=== PATIENT | male | born 1940 | race Caucasian/White ===

== ENCOUNTER 2023-04-16 09:44 | Outpatient (CLI) | payer MEDICARE, SELFPAY | END 2023-04-16 09:45 | disposition home or self-care (01) | LOC: ANHAUDIO 09:47 | PROVIDERS: PCP Nurse Practitioner Family; Visit Provider Nurse Practitioner Family | DX: R26.89 Other abnormalities of gait and mobility (principal); H91.90 Unspecified hearing loss, unspecified ear | CPT/HCPCS: 99199 ==

== ENCOUNTER 2024-01-22 11:15 | Outpatient (RCR) | payer MEDICARE, SELFPAY ==
--- NOTE | 2023-12-25 16:38 | OPREHPOC ---
Outpatient Therapy Plan of Care This is a Multidisciplinary Plan of Care that may contain components documented by all disciplines (PT, OT, and ST.) PT Problem 1 PT Problem #1 Knowledge Deficit PT Goal 1 Goal *indep with HEP Target Visit 10 PT Problem 2 PT Problem #2 Impaired Strength PT Goal 1 Goal increase strength of R and L LE to improve mobility and safety 1* pt perform 20 reps of mat and standing exercises 2* single leg standing R x 10 seconds with good stability 3* single leg standing L x 10 seconds with good stability Target Visit 10 PT Problem 3 PT Problem #3 Impaired Functional Mobility PT Goal 1 Goal 1* Kuhn balance score of 53/56 2* 5 sit/stand time of 16 seconds with good stability 3* 2 minute walking test distance of 425' 4* further assessment of vestibular system as indicated Target Visit 10
--- NOTE | 2023-12-25 16:38 | PTOPEVAL1 ---
Assessment and note entered by Consuelo Wong, PT Evaluation Information Assessment Status Evaluation Diagnosis dizziness ICD-10 Condition Codes (PT) Dizziness & Giddiness R42 Onset Jun 2023 Subjective Information issues for about 2 years with dizziness, worst in the past 6 months; take meclazine 4x/day, take regularly/ not PRN; not sure if it helps or not; symptoms: off balance with sit to stand: stand still before take off walking; depth perception is not good; cannot walk straight path and have shorter steps; with leaning over to pick things up off floor- move slowly because get off balance; spinning ONLY occurs at night, when lie in bed, rolling in bed, ceiling spins around; if lie on L side it eases; in the past 6 months: fell 1 time with sitting down- did not back up enough to the chair; activity level: indep with home and light yard work; does weekly motorcycle trip with group; has a membership to [employer], but go only about 1x/wk; Reported Pain Level Pain Score 2: Self Report Additional Pain Score Comments chronic back and R hip pain Assessment PT Clinical Summary Hugh has the diagnosis of dizziness. His medical history includes: HTN, diabetes, increase cholesterol, falls, sinus issues, [place]. With the evaluation: he reports his symptoms more of unbalanced, unsteady and fear of falling, moving slowly and only spinning reported with lie in bed and rolling, eases quickly with holding still. He has decreased strength of both legs, R weaker than L; Kuhn balance score of 47/56, 2 minute walking test distance of 365' and 5 reps sit/stand time of 19 seconds. Skilled PT services are indicated for increase in LE strength, balance and mobility skill, with education for HEP and safety with mobility. Will monitor dizziness/spin
== END 2024-03-16 10:00 | disposition home or self-care (01) ==
LOC: ANHPT 11:15
PROVIDERS: PCP Nurse Practitioner Family; Visit Provider Nurse Practitioner Family
DX: R42 Dizziness and giddiness (principal)
CPT/HCPCS: 97110; 97112; 97116; 97162; 97530

== ENCOUNTER 2024-06-03 09:57 | Outpatient (CLI) | payer MEDICARE, SELFPAY ==
--- NOTE | ~2024-06-03 | XR_ITS ---
Thoracic spine: Clinical Indication: Back pain AP and lateral views were performed. No fracture is seen. There is normal alignment of the vertebrae. There is mild to moderate degenerat lorena disc narrowing throughout the thoracic spine. Paravertebral soft tissues appear normal. Impression: Mild to moderate degenerative disc narrowing throughout the thoracic spine. Reviewed, dictated and finalized at [facility]. N RESOURCES RECEPTIONIST Impression: Mild to moderate degenerative disc narrowing throughout the thoracic spine.
--- NOTE | ~2024-06-03 | XR_ITS ---
Lumbosacral Spine: AP and lateral views Clinical History: Pain Findings: The normal lordotic curve is maintained. No fracture seen. Grade I anterolisthesis of L4 ov er L5 noted. There are severe facet arthropathy at L4-L5 and L5-S1. There is moderate degenerative di sc narrowing at L1-L2 and L2-L3. The sacroiliac joints are normally outlined. Impression: Moderate degenerative spondylosis overall, as detailed above. Grade 1 anterolisthesis of L4 over L5. Reviewed, dictated and finalized at location M. L BUILDER Impression: Moderate degenerative spondylosis overall, as detailed above. Grade 1 anterolisthesis of L4 over L5.
== END 2024-06-03 09:58 | disposition home or self-care (01) ==
LOC: MICIMG 09:59
PROVIDERS: PCP Nurse Practitioner Family; Visit Provider Nurse Practitioner Family
DX: M51.369 Other intervertebral disc degeneration, lumbar region without mention of lumbar back pain or lower extremity pain (principal); M51.34 Other intervertebral disc degeneration, thoracic region
CPT/HCPCS: 72070; 72100

== ENCOUNTER 2024-12-21 14:08 | Inpatient (IN) | payer MEDICARE, SELFPAY ==
--- NOTE | ~2024-12-21 | CT_ITS ---
CT OF left foot with contrast EXAMINATION: CT foot LT w con DATE: 12/21/2024 18:15 INDICATION: Infection, lateral foot TECHNIQUE: Computed tomography (CT) of the left foot was performed with 100 MLO Omnipaque 350 intrave nous contrast. Automated exposure control and iterative reconstruction technique were employed. The d ose-length product was 497.38 mGy-cm. COMPARISON: X-ray left foot, same date FINDINGS: Limitations: None Bones: Moderate degenerative change at the first MTP joint. Mild scattered degenerative change in the midfoot joints. Mild degenerative change at the ankle. 12 mm ossified body anterior to the distal fi bula, ossicle versus old fracture fragment. Mild Achilles and plantar enthesopathy. The included osse ous structures are otherwise within normal limits. There are no erosive or destructive bony lesions. Soft Tissues:Induration of subcutaneous fat laterally. No focal skin defect. Likely partial tear of t he peroneus brevis tendon. The remaining flexor and extensor tendons appear to be intact. Fluid: No significant fluid within the joint capsule or surrounding soft tissues. IMPRESSION: No acute osseous finding in the left foot. No CT evidence of osteomyelitis. Likely partial peroneus brevis tear. Lateral soft tissue swelling/induration. Reviewed, dictated and finalized at location K.
--- NOTE | ~2024-12-21 | XR_ITS ---
EXAMINATION: XR foot LT min 3V DATE: 12/21/2024 15:50 INDICATION: Diabetic foot wound TECHNIQUE: Dorsoplantar, two oblique and lateral views of the left foot were obtained. COMPARISON: None. FINDINGS: Soft tissue swelling about the lateral aspect of the ankle and hindfoot. There is an indistinct corti kash margin along the distal tip at the lateral malleolus and could not exclude a cortical erosion/ost eolysis and loosening of osteomyelitis. There appears be a small ossific density anterior to the tip the lateral malleolus which appears corticated and favor chronic nonunited fracture fragment versus h eterotopic opacification related to chronic anterior talofibular ligament sprain. No other lesions chairez spicious for fracture. Hallux valgus and bunion with mild hypertrophic change at the medial head of t he first metatarsal. Chronic appearing erosion with overhanging subsequent thin sclerotic margins at the medial head of the first metatarsal which could be related to the bunion formation with different ial also including gout. Moderate osteoarthritis at the and first and second metatarsophalangeal join ts and at the third tarsal metatarsal joint. Additional mild polyarticular osteoarthritis involving m any of the remaining joints in the left foot. Small plantar calcaneal spur. IMPRESSION: 1. Soft tissue swelling at the lateral ankle and hindfoot with indistinct cortex at the tip of the la teral malleolus and could not exclude osteomyelitis. Differential would include sequela from avulsion fracture either acute or chronic. Correlate for adjacent skin wound and consider left ankle radiogra phs to better profiled as location. 2. Hallux valgus with bunion and possible chronic erosion at the medial head of the first metatarsal with appearance and location most suggestive of gout. 2. 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 Reviewed, dictated and finalized at location A. IMPRESSION: 1. Soft tissue swelling at the lateral ankle and hindfoot with indistinct trina x at the tip of the lateral malleolus and could not exclude osteomyelitis. Diff erential would include sequela from avulsion fracture either acute or chronic. Correlate for adjacent skin wound and consider left ankle radiographs to better profiled as location. 2. Hallux valgus with bunion and possible chronic erosion at the medial head of the first metatarsal with appearance and location most suggestive of gout. 2. 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
--- NOTE | ~2024-12-21 | MR_ITS ---
EXAMINATION: MR foot LT wo/w con DATE: 12/23/2024 12:42 INDICATION: Left foot ulcer. Assess for osteomyelitis. TECHNIQUE: Magnetic resonance imaging (MRI) of the left fore/mid foot was performed without and with 15 mL Multihance intravenous contrast. Sequences included axial, sagittal and coronal T1-weighted FSE , sagittal fluid sensitive FSE STIR, axial and coronal T2-weighted FS FSE, axial T1-weighted FS FSE a nd postcontrast axial, sagittal and coronal T1-weighted FS FSE. COMPARISON: CT dated 12/21/2024 FINDINGS: There is skin thickening and subcutaneous edema over the lateral aspect of the dorsum of the forefoot consistent with cellulitis. No abscess. No osteomyelitis or other pathologic marrow replacing proces s. No fracture. Hallux valgus with bunion formation at the medial head of the first metatarsal includ ing mild subcortical cystic changes. Mild to moderate polyarticular osteoarthritis, most severe and w ith associated subarticular cystlike and edema-like signal changes at the second-fourth tarsal metata rsal an intermetatarsal joints and at the first and second metatarsophalangeal joints. Mild osteoarth ritis at many of the remaining joints in the mid and forefoot. Ganglion cyst versus small amount of t enosynovial fluid stenting along the flexor hallucis longus longus tendon at the level of the midfoot . There is moderate fatty atrophy and diffuse mild increased fluid signal in the intrinsic musculatur e of the foot suggesting sequela of acute on chronic innervation changes. IMPRESSION: 1. Likely cellulitis at the lateral dorsal aspect of the forefoot. No osteomyelitis or abscess. 2. Moderate polyarticular osteoarthritis in the mid and forefoot. Reviewed, dictated and finalized at location A. IMPRESSION: 1. Likely cellulitis at the lateral dorsal aspect of the forefoot. No osteomyel itis or abscess. 2. Moderate polyarticular osteoarthritis in the mid and forefoot.
[2024-12-21 14:46] VITALS: BP 161/68; PULSE 90; RESP 16; TEMP 36.9; O2SAT 96
--- NOTE | 2024-12-21 14:53 | ED_ITS ---
HPI - Skin/Abscess/Foreign Bdy General Chief complaint: Skin/Abscess/Foreign Body <DANDRE Gray Last Filed: 12/22/24 10:40> Stated complaint: I have an infected L foot, it's red and swollen <DANDRE Gray Last Filed: 12/22/24 10:40> Time Seen by Provider: 12/21/24 14:53 <DANDRE Gray Last Filed: 12/22/24 10:40> Focused HPI: This is a 84 year old male that presents to the ER for redness, swelling, drainage from the left foot. Worsening over the last couple of days. He is diabetic. GENERAL: Well-appearing, well-nourished, and in no acute distress. HEAD: Normocephalic, atraumatic. CHEST: Clear to auscultation. ?No respiratory distress. HEART: Regular rate and rhythm.? NEURO: ?Alert and oriented x3. EXTREMITY: Left foot with large area of erythema with central fluctuance, actively draining pus Patient screened in triage and initial orders placed.? ?Additional care and disposition to be based upon?diagnostic testing and treatment. <Chela Christiansen PA-C - Last Filed: 12/22/24 10:40> Focused HPI: This is a 84 year old male that presents to the ER for redness, swelling, drainage from the left foot. Worsening over the last couple of days. He is diabetic. GENERAL: Well-appearing, well-nourished, and in no acute distress. HEAD: Normocephalic, atraumatic. CHEST: Clear to auscultation. ?No respiratory distress. HEART: Regular rate and rhythm.? NEURO: ?Alert and oriented x3. EXTREMITY: Left foot with large area of erythema with central fluctuance, actively draining pus Patient screened in triage and initial orders placed.? ?Additional care and disposition to be based upon?diagnostic testing and treatment. <DANDRE Cruz Last Filed: 12/21/24 20:38> Source: patient <DANDRE Cruz Last Filed: 12/21/24 20:38> Mode of arrival: ambulatory <DANDRE Cruz Last Filed: 12/21/24 20:38> Limitations: no limitations <Sadia Jones PA-C - Last Filed: 12/21/24 20:38> History of Present Illness HPI narrative: Agree with above HPI. Reports last Saturday he noticed a piece of glass in his shoe. Sustained small laceration to his left lateral mid foot. Reports that has increased in size, swelling, redness, pain. States his blood sugars have been around 120. He reports subjective fevers over last couple days. < DANDRE Cruz Last Filed: 12/21/24 20:38> Related Data Home medications: Home Medications ?Medication ?Instructions ?Recorded ?Confirmed ?Last Taken ?Type calcium carbonate (Calcium 500) 500 mg PO BID PRN dyspepsia 08/05/19 12/21/24 Unknown History psyllium husk 3.4 gram/5.4 gram 1 tbsp PO DAILY 08/05/19 12/21/24 Unknown History oral powder (Metamucil) clopidogrel 75 mg tablet 75 mg PO HS 12/21/24 12/21/24 Unknown History finasteride 5 mg tablet 5 mg PO DAILY 12/21/24 12/21/24 Unknown History pravastatin 20 mg tablet 20 mg PO HS 12/21/24 12/21/24 Unknown History <Chela Christiansen PA-C - Last Filed: 12/22/24 10:40> Allergies/Adverse reactions: Allergies Allergy/AdvReac Type Severity Reaction Status Date / Time No Known Allergies Allergy Verified 12/21/24 21:42 <DANDRE Gray Last Filed: 12/22/24 10:40> Review of Systems 2 Review of Systems: All systems reviewed & are unremarkable except as noted in HPI. <Sadia Jones PA-C - Last Filed: 12/21/24 20:38> All systems reviewed & are unremarkable except as noted in HPI and below < Sadia Jones PA-C - Last Filed: 12/21/24 20:38> PMFSH Past Medical History Medical History: Medical History (Updated 12/21/24 @ 22:50 by Lynsey Lovell DO) GERD (gastroesophageal reflux disease) Allergic rhinitis Chronic kidney disease (CKD) stage G2/A2, mildly decreased glomerular filtration rate (GFR) between 60-89 mL/min/1.73 square meter and albuminuria creatinine ratio between 30-299 mg/g ASHD (arteriosclerotic heart disease) Benign essential hypertension Cerebrovascular accident (CVA) Chronic GERD Elevated prostate specific antigen [PSA] Nocturnal leg cramps Nummular eczema Other and unspecified hyperlipidemia <Chela Christiansen PA-C - Last Filed: 12/22/24 10:40> Surgical History Surgical History: Surgical History (Updated 12/21/24 @ 22:43 by Lynsey Lovell DO) History of arthroscopy of left knee (~2015) History of tonsillectomy and adenoidectomy (~1946) <Chela Christiansen PA-C - Last Filed: 12/22/24 10:40> Family History Family History: Family History Father Family history of lung cancer <Chela Christiansen PA-C - Last Filed: 12/22/24 10:40> Social History Social History: Social History (Updated 12/21/24 @ 22:45 by Lynsey Lovell DO) Social History: Patient lives with his they been since 1964. They have 2 daughters and a son. Two of her children live in [place]. He smoked 1 pack per day but quit in his early 20s. 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 He only briefly drink alcohol when he was young he only will rarely drink a small amount since then. He is active does his own [employer] work and is independent in activities of daily living. Code status: Full code Surrogate decision maker: Smoking packs per day: 1 Smoking cigarettes per day: 20.0 Years smoked: 4 Smoking pack-years: 4.00 Smoking status: Former smoker Second hand tobacco smoke exposure: No Smoking end date: 06/17/1966 Alcohol intake: current Drinks per week: 1 Alcohol use details: Rarely Substance use: never Substance use type: does not use Do You Feel Safe in your Home?: Yes Lack of Transportation: No Lack of Food: Never True Current Housing: I Have Housing Concerned About Future Housing: No Difficulty Paying Gas/Electric Bills: No Difficulty Paying for Meds: No Currently Unemployed: No Education: Bachelor's Degree Difficulty w/ Childcare or Family Care: No Living arrangements: with family Occupation/Education: retired Gender identity (if verbalized by the patient): Male Sexual Orientation (if Verbalized by the Patient): Straight or Heterosexual Spiritual care concerns: No <Chela Christiansen PA-C - Last Filed: 12/22/24 10:40> Exam 2 Narrative: GENERAL: Elderly/well appearing, well-nourished, non-toxic, in no acute distress. HEAD: Normocephalic, atraumatic. RESPIRATORY: Airway patent, respirations nonlabored. CARDIOVASCULAR: Regular rate and rhythm without murmurs, rubs, or gallops. Pedal pulses intact and easily palpable. MUSCULOSKELETAL: Moves all extremities. Area of bogginess, fluctuance to L mid lateral dorsal foot/in area of mid 5th MT. Active purulent drainage with gentle manipulation. Surrounding erythema/warmth extending up to dorsal foot, lateral malleoli region. Focal TTP. Sensation intact. SKIN: Warm, dry, normal color. NEURO: A&O X3. Speech clear. [place]. No ataxic movements. PSYCHIATRIC: Appropriate mood and affect. Normal interaction. <Sadia Jones PA-C - Last Filed: 12/21/24 20:38> Course STREET PHOTOGRAPHER/PA Physician Supervision For this patient encounter, I reviewed the STREET PHOTOGRAPHER or PA documentation, treatment plan, and medical decision making and had [id number] time with this patient. I performed all aspects of the MDM as documented. <Apurva Holbrook MD - Last Filed: 12/22/24 03:15> Vital Signs Vital signs: Vital Signs Temperature 98.4 F 12/21/24 14:46 Pulse Rate 90 12/21/24 14:46 Respiratory Rate 16 12/21/24 14:46 Blood Pressure 161/68 H 12/21/24 14:46 Pulse Oximetry 96 12/21/24 14:46 Oxygen Delivery Room Air 12/21/24 14:46 Temperature 97.6 F 12/22/24 04:14 Pulse Rate 72 12/22/24 04:14 Respiratory Rate 18 12/22/24 04:14 Blood Pressure 149/66 H 12/22/24 04:14 Pulse Oximetry 93 12/22/24 04:14 Oxygen Delivery Room Air 12/22/24 08:00 <Chela Christiansen PA-C - Last Filed: 12/22/24 10:40> Vital Signs Temperature 98.4 F 12/21/24 14:46 Pulse Rate 90 12/21/24 14:46 Respiratory Rate 16 12/21/24 14:46 Blood Pressure 161/68 H 12/21/24 14:46 Pulse Oximetry 96 12/21/24 14:46 Oxygen Delivery Room Air 12/21/24 14:46 Temperature 97.6 F 12/22/24 04:14 Pulse Rate 72 12/22/24 04:14 Respiratory Rate 18 12/22/24 04:14 Blood Pressure 149/66 H 12/22/24 04:14 Pulse Oximetry 93 12/22/24 04:14 Oxygen Delivery Room Air 12/22/24 08:00 <Sadia Jones PA-C - Last Filed: 12/21/24 20:38> Vital Signs Temperature 98.4 F 12/21/24 14:46 Pulse Rate 90 12/21/24 14:46 Respiratory Rate 16 12/21/24 14:46 Blood Pressure 161/68 H 12/21/24 14:46 Pulse Oximetry 96 12/21/24 14:46 Oxygen Delivery Room Air 12/21/24 14:46 Temperature 97.6 F 12/22/24 04:14 Pulse Rate 72 12/22/24 04:14 Respiratory Rate 18 12/22/24 04:14 Blood Pressure 149/66 H 12/22/24 04:14 Pulse Oximetry 93 12/22/24 04:14 Oxygen Delivery Room Air 12/22/24 08:00 <Apurva Holbrook MD - Last Filed: 12/22/24 03:15> MDM - Skin/Abscess/Foreign Bdy MDM Narrative Medical decision making narrative: Patient presented to ED with diabetic L foot infection. Believes he was cut by a piece of glass in his shoe on Saturday. Vital signs are stable upon arrival. Afebrile. Laboratory studies with white count of 10.4. Neutrophil predominance. Stable H&H. Inflammatory markers are elevated. Lactic acid within normal range. BMP is otherwise fairly unremarkable. Blood glucose is 152. Blood cultures were obtained. Wound culture was also obtained from actively draining region on foot. X-ray of left foot showing soft tissue swelling, possible osteomyelitis near the tip of the lateral malleoli. Will obtain CT of the foot to further evaluate. CT does not show any evidence of osteomyelitis or foreign body. No evidence of abscess. Patient started on cefepime, vancomycin, Flagyl for diabetic foot infection per ED antibiotic stewardship. Will be admitted for further evaluation of foot infection. Discussed case with Dr. Lovell, hospitalist, accepted patient for admission. Wound consult placed. Patient and family in agreement with plan and admission. <Sadia Jones PA-C - Last Filed: 12/21/24 20:38> Medical Records Attestation: I reviewed the patient's medical records. <DANDRE Cruz Last Filed: 12/21/24 20:38> Lab Data Attestation: I reviewed the patient's lab results. <DANDRE Cruz Last Filed: 12/21/24 20:38> Result diagrams: 12/22/24 05:28 12/22/24 05:28 <DANDRE Gray Last Filed: 12/22/24 10:40> Labs: Lab Results 12/21/24 12/21/24 12/22/24 Range/Units 16:39 21:37 05:28 WBC 10.4 H 7.8 (4.5-10.0) K/mm3 RBC 4.44 L 4.30 L (4.6-6.20) M/mm3 Hgb 13.5 L 13.2 L (14.0-18.0) g/dL Hct 39.9 L 38.8 L (42.0-52.0) % MCV 89.9 90.2 (80-100) fl MCH 30.4 30.7 (26-34) pg MCHC 33.8 34.0 (32-36) g/dl RDW 12.7 12.8 (11.5-14.5) % Plt Count 142 L 136 L (150-375) k/mm3 MPV 11.0 H 11.0 H (7.4-10.4) fl Immature Gran % (Auto) 0.5 0.5 (0-0.5) % Neut % (Auto) 78.7 H 74.1 H (45.5-73.1) % Lymph % (Auto) 12.7 L 13.8 L (18.3-44.2) % [place] % (Auto) 6.3 7.8 (2.6-8.5) % Eos % (Auto) 1.5 3.2 (0-4.4) % Baso % (Auto) 0.3 0.6 (0.2-1.2) % Lymph # (Auto) 1.32 1.08 (0.9-3.2) K/mm3 [place] # (Auto) 0.7 H 0.6 (0.1-0.6) K/mm3 Eos # (Auto) 0.2 0.3 (0-0.3) K/mm3 Baso # (Auto) 0.0 0.1 (0.0-0.1) K/mm3 Abs Immat Gran (auto) 0.05 H 0.04 H (0.00-0.031) K/mm3 Absolute Neuts (auto) 8.2 H 5.8 (1.3-6.7) K/mm3 Absolute Nucleated RBC 0.000 0.000 (0.0-0.012) K/mm3 Nucleated RBC % 0.0 0.0 (0.0-0.2) % % Immature Plt Fraction 5.0 5.2 (0.9-11.2) % ESR 51 H (0-20) mm/hr Sodium 138 (137-145) mmol/L Potassium 4.1 (3.4-5.0) mmol/L Chloride 101 (98-107) mmol/L Carbon Dioxide 30 (22-30) mmol/L Anion Gap 7 (4-12) mmol/L BUN 20 (9-20) mg/dL Creatinine 0.91 0.82 (0.7-1.3) mg/dL Estim Creat Clear Calc 54 60 ml/min Estimated GFR > 60 > 60 (59 - ) Glucose 152 H (65-110) mg/dL POC Capillary Glucose 130 H (65-105) mg/dl Lactic Acid 1.1 (0.7-2.0) mmol/L Calcium 9.9 (8.4-10.2) mg/dL C-Reactive Protein 3.4 H (<1.0) mg/dL 07/08/25 Range/Units 08:26 WBC (4.5-10.0) K/mm3 RBC (4.6-6.20) M/mm3 Hgb (14.0-18.0) g/dL Hct (42.0-52.0) % MCV (80-100) fl MCH (26-34) pg MCHC (32-36) g/dl RDW (11.5-14.5) % Plt Count (150-375) k/mm3 MPV (7.4-10.4) fl Immature Gran % (Auto) (0-0.5) % Neut % (Auto) (45.5-73.1) % Lymph % (Auto) (18.3-44.2) % [place] % (Auto) (2.6-8.5) % Eos % (Auto) (0-4.4) % Baso % (Auto) (0.2-1.2) % Lymph # (Auto) (0.9-3.2) K/mm3 [place] # (Auto) (0.1-0.6) K/mm3 Eos # (Auto) (0-0.3) K/mm3 Baso # (Auto) (0.0-0.1) K/mm3 Abs Immat Gran (auto) (0.00-0.031) K/mm3 Absolute Neuts (auto) (1.3-6.7) K/mm3 Absolute Nucleated RBC (0.0-0.012) K/mm3 Nucleated RBC % (0.0-0.2) % % Immature Plt Fraction (0.9-11.2) % ESR (0-20) mm/hr Sodium (137-145) mmol/L Potassium (3.4-5.0) mmol/L Chloride (98-107) mmol/L Carbon Dioxide (22-30) mmol/L Anion Gap (4-12) mmol/L BUN (9-20) mg/dL Creatinine (0.7-1.3) mg/dL Estim Creat Clear Calc ml/min Estimated GFR (59 - ) Glucose (65-110) mg/dL POC Capillary Glucose 144 H (65-105) mg/dl Lactic Acid (0.7-2.0) mmol/L Calcium (8.4-10.2) mg/dL C-Reactive Protein (<1.0) mg/dL <Chela Christiansen PA-C - Last Filed: 12/22/24 10:40> Lab Results 12/21/24 12/21/24 12/22/24 Range/Units 16:39 21:37 05:28 WBC 10.4 H 7.8 (4.5-10.0) K/mm3 RBC 4.44 L 4.30 L (4.6-6.20) M/mm3 Hgb 13.5 L 13.2 L (14.0-18.0) g/dL Hct 39.9 L 38.8 L (42.0-52.0) % MCV 89.9 90.2 (80-100) fl MCH 30.4 30.7 (26-34) pg MCHC 33.8 34.0 (32-36) g/dl RDW 12.7 12.8 (11.5-14.5) % Plt Count 142 L 136 L (150-375) k/mm3 MPV 11.0 H 11.0 H (7.4-10.4) fl Immature Gran % (Auto) 0.5 0.5 (0-0.5) % Neut % (Auto) 78.7 H 74.1 H (45.5-73.1) % Lymph % (Auto) 12.7 L 13.8 L (18.3-44.2) % [place] % (Auto) 6.3 7.8 (2.6-8.5) % Eos % (Auto) 1.5 3.2 (0-4.4) % Baso % (Auto) 0.3 0.6 (0.2-1.2) % Lymph # (Auto) 1.32 1.08 (0.9-3.2) K/mm3 [place] # (Auto) 0.7 H 0.6 (0.1-0.6) K/mm3 Eos # (Auto) 0.2 0.3 (0-0.3) K/mm3 Baso # (Auto) 0.0 0.1 (0.0-0.1) K/mm3 Abs Immat Gran (auto) 0.05 H 0.04 H (0.00-0.031) K/mm3 Absolute Neuts (auto) 8.2 H 5.8 (1.3-6.7) K/mm3 Absolute Nucleated RBC 0.000 0.000 (0.0-0.012) K/mm3 Nucleated RBC % 0.0 0.0 (0.0-0.2) % % Immature Plt Fraction 5.0 5.2 (0.9-11.2) % ESR 51 H (0-20) mm/hr Sodium 138 (137-145) mmol/L Potassium 4.1 (3.4-5.0) mmol/L Chloride 101 (98-107) mmol/L Carbon Dioxide 30 (22-30) mmol/L Anion Gap 7 (4-12) mmol/L BUN 20 (9-20) mg/dL Creatinine 0.91 0.82 (0.7-1.3) mg/dL Estim Creat Clear Calc 54 60 ml/min Estimated GFR > 60 > 60 (59 - ) Glucose 152 H (65-110) mg/dL POC Capillary Glucose 130 H (65-105) mg/dl Lactic Acid 1.1 (0.7-2.0) mmol/L Calcium 9.9 (8.4-10.2) mg/dL C-Reactive Protein 3.4 H (<1.0) mg/dL 12/22/24 Range/Units 08:26 WBC (4.5-10.0) K/mm3 RBC (4.6-6.20) M/mm3 Hgb (14.0-18.0) g/dL Hct (42.0-52.0) % MCV (80-100) fl MCH (26-34) pg MCHC (32-36) g/dl RDW (11.5-14.5) % Plt Count (150-375) k/mm3 MPV (7.4-10.4) fl Immature Gran % (Auto) (0-0.5) % Neut % (Auto) (45.5-73.1) % Lymph % (Auto) (18.3-44.2) % [place] % (Auto) (2.6-8.5) % Eos % (Auto) (0-4.4) % Baso % (Auto) (0.2-1.2) % Lymph # (Auto) (0.9-3.2) K/mm3 [place] # (Auto) (0.1-0.6) K/mm3 Eos # (Auto) (0-0.3) K/mm3 Baso # (Auto) (0.0-0.1) K/mm3 Abs Immat Gran (auto) (0.00-0.031) K/mm3 Absolute Neuts (auto) (1.3-6.7) K/mm3 Absolute Nucleated RBC (0.0-0.012) K/mm3 Nucleated RBC % (0.0-0.2) % % Immature Plt Fraction (0.9-11.2) % ESR (0-20) mm/hr Sodium (137-145) mmol/L Potassium (3.4-5.0) mmol/L Chloride (98-107) mmol/L Carbon Dioxide (22-30) mmol/L Anion Gap (4-12) mmol/L BUN (9-20) mg/dL Creatinine (0.7-1.3) mg/dL Estim Creat Clear Calc ml/min Estimated GFR (59 - ) Glucose (65-110) mg/dL POC Capillary Glucose 144 H (65-105) mg/dl Lactic Acid (0.7-2.0) mmol/L Calcium (8.4-10.2) mg/dL C-Reactive Protein (<1.0) mg/dL <Sadia Jones PA-C - Last Filed: 12/21/24 20:38> Lab Results 12/21/24 12/21/24 12/22/24 Range/Units 16:39 21:37 05:28 WBC 10.4 H 7.8 (4.5-10.0) K/mm3 RBC 4.44 L 4.30 L (4.6-6.20) M/mm3 Hgb 13.5 L 13.2 L (14.0-18.0) g/dL Hct 39.9 L 38.8 L (42.0-52.0) % MCV 89.9 90.2 (80-100) fl MCH 30.4 30.7 (26-34) pg MCHC 33.8 34.0 (32-36) g/dl RDW 12.7 12.8 (11.5-14.5) % Plt Count 142 L 136 L (150-375) k/mm3 MPV 11.0 H 11.0 H (7.4-10.4) fl Immature Gran % (Auto) 0.5 0.5 (0-0.5) % Neut % (Auto) 78.7 H 74.1 H (45.5-73.1) % Lymph % (Auto) 12.7 L 13.8 L (18.3-44.2) % [place] % (Auto) 6.3 7.8 (2.6-8.5) % Eos % (Auto) 1.5 3.2 (0-4.4) % Baso % (Auto) 0.3 0.6 (0.2-1.2) % Lymph # (Auto) 1.32 1.08 (0.9-3.2) K/mm3 [place] # (Auto) 0.7 H 0.6 (0.1-0.6) K/mm3 Eos # (Auto) 0.2 0.3 (0-0.3) K/mm3 Baso # (Auto) 0.0 0.1 (0.0-0.1) K/mm3 Abs Immat Gran (auto) 0.05 H 0.04 H (0.00-0.031) K/mm3 Absolute Neuts (auto) 8.2 H 5.8 (1.3-6.7) K/mm3 Absolute Nucleated RBC 0.000 0.000 (0.0-0.012) K/mm3 Nucleated RBC % 0.0 0.0 (0.0-0.2) % % Immature Plt Fraction 5.0 5.2 (0.9-11.2) % ESR 51 H (0-20) mm/hr Sodium 138 (137-145) mmol/L Potassium 4.1 (3.4-5.0) mmol/L Chloride 101 (98-107) mmol/L Carbon Dioxide 30 (22-30) mmol/L Anion Gap 7 (4-12) mmol/L BUN 20 (9-20) mg/dL Creatinine 0.91 0.82 (0.7-1.3) mg/dL Estim Creat Clear Calc 54 60 ml/min Estimated GFR > 60 > 60 (59 - ) Glucose 152 H (65-110) mg/dL POC Capillary Glucose 130 H (65-105) mg/dl Lactic Acid 1.1 (0.7-2.0) mmol/L Calcium 9.9 (8.4-10.2) mg/dL C-Reactive Protein 3.4 H (<1.0) mg/dL 12/22/24 Range/Units 08:26 WBC (4.5-10.0) K/mm3 RBC (4.6-6.20) M/mm3 Hgb (14.0-18.0) g/dL Hct (42.0-52.0) % MCV (80-100) fl MCH (26-34) pg MCHC (32-36) g/dl RDW (11.5-14.5) % Plt Count (150-375) k/mm3 MPV (7.4-10.4) fl Immature Gran % (Auto) (0-0.5) % Neut % (Auto) (45.5-73.1) % Lymph % (Auto) (18.3-44.2) % [place] % (Auto) (2.6-8.5) % Eos % (Auto) (0-4.4) % Baso % (Auto) (0.2-1.2) % Lymph # (Auto) (0.9-3.2) K/mm3 [place] # (Auto) (0.1-0.6) K/mm3 Eos # (Auto) (0-0.3) K/mm3 Baso # (Auto) (0.0-0.1) K/mm3 Abs Immat Gran (auto) (0.00-0.031) K/mm3 Absolute Neuts (auto) (1.3-6.7) K/mm3 Absolute Nucleated RBC (0.0-0.012) K/mm3 Nucleated RBC % (0.0-0.2) % % Immature Plt Fraction (0.9-11.2) % ESR (0-20) mm/hr Sodium (137-145) mmol/L Potassium (3.4-5.0) mmol/L Chloride (98-107) mmol/L Carbon Dioxide (22-30) mmol/L Anion Gap (4-12) mmol/L BUN (9-20) mg/dL Creatinine (0.7-1.3) mg/dL Estim Creat Clear Calc ml/min Estimated GFR (59 - ) Glucose (65-110) mg/dL POC Capillary Glucose 144 H (65-105) mg/dl Lactic Acid (0.7-2.0) mmol/L Calcium (8.4-10.2) mg/dL C-Reactive Protein (<1.0) mg/dL <Apurva Holbrook MD - Last Filed: 12/22/24 03:15> Imaging Data Attestation: I personally reviewed and interpreted this imaging study as follows: < Sadia Jones PA-C - Last Filed: 12/21/24 20:38> Radiologist's impression: ITS Impressions Foot X-Ray 12/21/24 16:14 IMPRESSION: 1. Soft tissue swelling at the lateral ankle and hindfoot with indistinct cortex at the tip of the lateral malleolus and could not exclude osteomyelitis. Differential would include sequela from avulsion fracture either acute or chronic. Correlate for adjacent skin wound and consider left ankle radiographs to better profiled as location. 2. Hallux valgus with bunion and possible chronic erosion at the medial head of the first metatarsal with appearance and location most suggestive of gout. 2. 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 Foot CT 12/21/24 18:28 IMPRESSION: No acute osseous finding in the left foot. No CT evidence of osteomyelitis. Likely partial peroneus brevis tear. Lateral soft tissue swelling/induration. <Sadia Jones PA-C - Last Filed: 12/21/24 20:38> Discharge Plan Discharge Clinical Impression: Diabetic infection of left foot <Chela Christiansen PA-C - Last Filed: 12/22/24 10:40> Patient Disposition: Still a Patient <DANDRE Gray Last Filed: 12/22/24 10:40> Condition: Stable <DANDRE Gray Last Filed: 12/22/24 10:40>
[2024-12-21 16:30] VITALS: BP 148/56; PULSE 70; RESP 18; TEMP 36.7; O2SAT 98
[2024-12-21 17:00] LABS: Hematocrit 39.9 % (42.0-52.0); Hemoglobin 13.5 g/dL (14.0-18.0); Immature Granulocyte Percent A 0.5 % (0-0.5); Immature Platelet Fraction Pct 5.0 % (0.9-11.2); Lymphocytes Absolute Auto 1.32 K/mm3 (0.9-3.2); Mean Corpuscular HGB Conc 33.8 g/dl (32-36); Mean Corpuscular Hemoglobin 30.4 pg (26-34); Mean Corpuscular Volume 89.9 fl (80-100); Nucleated Red Blood Cells Absolute Auto 0.000 K/mm3 (0.0-0.012); Nucleated Red Blood Cells Perc 0.0 % (0.0-0.2); Platelet Count Result 142 k/mm3 (150-375); Red Blood Count 4.44 M/mm3 (4.6-6.20); White Blood Count 10.4 K/mm3 (4.5-10.0)
[2024-12-21 17:15] VITALS: BP 153/76; PULSE 66; RESP 18; TEMP 36.7; O2SAT 100
[2024-12-21 17:23] LABS: Anion Gap 7 mmol/L (4-12); Blood Urea Nitrogen 20 mg/dL (9-20); CRP 3.4 mg/dL (<1.0); Calcium 9.9 mg/dL (8.4-10.2); Carbon Dioxide 30 mmol/L (22-30); Chloride 101 mmol/L (98-107); Estimated CRCL calculation 54 ml/min; Estimated Glomerular Filt Rate > 60; Glucose 152 mg/dL (65-110); Potassium 4.1 mmol/L (3.4-5.0); Sodium 138 mmol/L (137-145)
[2024-12-21 17:45] VITALS: BP 154/67; PULSE 65; RESP 18; TEMP 36.7; O2SAT 99
--- NOTE | 2024-12-21 17:47 | PC.NURSE ---
sedation note written in error
[2024-12-21] MEDS: metroNIDAZOLE 500 MG/ISO 100ML 500 MG/100 ML BAG 100 MG IVPB (18:09)
[2024-12-21] MEDS: CEFEPIME 1 GM in SODIUM CHLORIDE 0.9% IV 50 ML 100 ML IVPB (18:11)
[2024-12-21] MEDS: VANCOMYCIN 2,000 MG/NS 500 ML 2,000 MG/500 ML BAG 250 MG IVPB (19:16)
[2024-12-21 21:35] VITALS: BP 176/70; PULSE 59; RESP 16; TEMP 36.2; O2SAT 97; BMI 25.9
--- NOTE | 2024-12-21 22:32 | PM.IMHP ---
H&P: HPI History of Present Illness Date/Time: 12/21/24 22:32 Chief Complaint: Left foot infection Narrative: Pleasant, loquacious 84-year-old male with a past medical history of essential hypertension, type 2 diabetes mellitus, diabetic peripheral neuropathy, hyperlipidemia and GERD who presented to the ER from home due to a left foot infection. He reports that 4 days ago he was walking in the [place] in his house slippers and felt a sharp pain. When he walked back into the house he found a little piece of clear debris poking through his house slipper. The next day he noticed that the lateral left foot was swollen and becoming erythematous. That evening he did have some chills and thought that he may have had a fever but did not check a temperature. Then yesterday his had been poking on the area and an area started draining some clear fluid. The erythema and swelling had worsened and he was having throbbing pain that was constant no matter what position he put his foot in. Pain was worse with ambulation. He called his primary care provider's office today who recommended he come into the ER for evaluation. In the ER x-ray did not demonstrate any foreign body and contrasted CT of foot did not demonstrate any evidence of abscess. Incidental finding of partial prone use brevis tear noted with lateral soft tissue swelling and induration consistent with cellulitis. Patient was afebrile on arrival to the ER. He had a mildly elevated white count at 10.4 and a mildly elevated CRP and ESR. He is euglycemic and reports that his hemoglobin A1c is always ?good?. Review of Systems Review of Systems: 12 systems were reviewed with pertinent positives and negatives per HPI. Except as documented in the HPI, all other systems were reviewed and are negative. He denies any nausea, vomiting, chest pain, shortness of breath. He does have BPH in chronic weak urinary stream unchanged from baseline. He has maturing cataracts. [facility] Past Medical History Medical History (Updated 12/21/24 @ 22:50 by Lynsey Lovell DO) GERD (gastroesophageal reflux disease) Allergic rhinitis Chronic kidney disease (CKD) stage G2/A2, mildly decreased glomerular filtration rate (GFR) between 60-89 mL/min/1.73 square meter and albuminuria creatinine ratio between 30-299 mg/g ASHD (arteriosclerotic heart disease) Benign essential hypertension Cerebrovascular accident (CVA) Chronic GERD Elevated prostate specific antigen [PSA] Nocturnal leg cramps Nummular eczema Other and unspecified hyperlipidemia Surgical History Surgical History (Updated 12/21/24 @ 22:43 by Lynsey Lovell DO) History of arthroscopy of left knee (~2014) History of tonsillectomy and adenoidectomy (~1946) Family History Family History Father Family history of lung cancer Social History Social History (Updated 12/21/24 @ 22:45 by Lynsey Lovell DO) Social History: Patient lives with his they been since 1964. They have 2 daughters and a son. Two of her children live in [place]. He smoked 1 pack per day but quit in his early 20s. 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 He only briefly drink alcohol when he was young he only will rarely drink a small amount since then. He is active does his own [employer] work and is independent in activities of daily living. Code status: Full code Surrogate decision maker: Smoking packs per day: 1 Smoking cigarettes per day: 20.0 Years smoked: 4 Smoking pack-years: 4.00 Smoking status: Former smoker Second hand tobacco smoke exposure: No Smoking end date: 06/17/1966 Alcohol intake: current Alcohol use details: Rarely Substance use: never Substance use type: does not use Lack of Transportation: No Lack of Food: Never True Current Housing: I Have Housing Concerned About Future Housing: No Difficulty Paying Gas/Electric Bills: No Difficulty Paying for Meds: No Currently Unemployed: No Education: Bachelor's Degree Difficulty w/ Childcare or Family Care: No Living arrangements: with family Occupation/Education: retired Gender identity (if verbalized by the patient): Male Sexual Orientation (if Verbalized by the Patient): Straight or Heterosexual Meds Home Medications and Allergies Home Medications ?Medication ?Instructions ?Recorded ?Confirmed ?Type calcium carbonate (Calcium 500) 500 mg PO BID 08/05/19 11/18/24 History psyllium husk 3.4 gram/5.4 gram 1 tbsp PO DAILY 08/05/19 11/18/24 History oral powder (Metamucil) lancets 32 gauge #100 ea 08/24/19 11/18/24 Rx blood sugar diagnostic #100 ea 03/18/23 11/18/24 Rx sitagliptin phosphate 50 1 tablet PO BID #210 tabs 06/29/24 11/18/24 Rx mg-metformin 1,000 mg tablet (Janumegordon) lisinopril 40 mg tablet See Rx Instructions .Route 09/11/24 11/18/24 Rx .COMPLEX #100 tabs omeprazole 40 mg capsule,delayed 40 mg PO DAILY #100 caps 10/01/24 11/18/24 Rx release hydrochlorothiazide 12.5 mg tablet See Rx Instructions .Route 11/24/24 Rx .COMPLEX #90 tabs amlodipine 10 mg tablet See Rx Instructions .Route 12/10/24 Rx .COMPLEX #100 tabs clopidogrel 75 mg tablet 75 mg PO HS 12/21/24 12/21/24 History finasteride 5 mg tablet 5 mg PO DAILY 12/21/24 12/21/24 History pravastatin 20 mg tablet 20 mg PO HS 12/21/24 12/21/24 History Allergies Allergy/AdvReac Type Severity Reaction Status Date / Time No Known Allergies Allergy Verified 12/21/24 21:42 Vital Signs Vital Signs - 24 hr 12/21/24 14:46 12/21/24 16:30 12/21/24 17:15 Temperature 98.4 F 98.0 F 98.0 F Pulse Rate 90 70 66 Respiratory Rate 16 18 18 Blood Pressure 161/68 H 148/56 H 153/76 H Pulse Oximetry 96 98 100 Oxygen Delivery Room Air 12/21/24 17:45 12/21/24 21:35 Temperature 98.0 F 97.2 F L Pulse Rate 65 59 L Respiratory Rate 18 16 Blood Pressure 154/67 H 176/70 H Pulse Oximetry 99 97 Oxygen Delivery Exam Narrative: Weight 79.8 kg BMI 26 Const: Other: No acute distress, well-developed well-nourished, appears stated age HENMT: Other: Fair dentition, mucous membranes are moist, no oral pharyngeal erythema Eyes: Other: Pupils are equal and reactive, bilateral cataracts noted, no conjunctival pallor Neck: Other: No lymphadenopathy, no thyromegaly Resp: Other: Clear to auscultation bilaterally, no increased work of breathing Cardio: Other: Sinus bradycardia, 2+ bilateral radial and pedal pulses, no murmur GI: Other: Soft, nontender, nondistended, positive bowel sounds Skin: Other: No jaundice, no pallor, erythema and swelling of lateral foot please see extremity exam Neuro: Other: Alert orient x4, speech is clear, no facial asymmetry, no localizing neurologic deficits noted during the course of conversation Extrem: Other: No clubbing, cyanosis or edema, erythema and swelling to the lateral 5th metatarsal with erythema extending up towards the ankle and lateral malleolus, increased warmth on palpation, there is a central area of about the size of a quarter that is white in as the appearance of a vesicle with a small puncture in the center that is draining copious amounts of serous fluid Psych: Other: Appropriate mood and affect, pleasant and cooperative, judgment and insight intact H&P: Results Labs Labs: Laboratory Tests 12/21/24 16:39 12/21/24 16:39 12/21/24 12/21/24 16:39 21:37 WBC 10.4 H RBC 4.44 L Hgb 13.5 L Hct 39.9 L MCV 89.9 MCH 30.4 MCHC 33.8 RDW 12.7 Plt Count 142 L MPV 11.0 H Immature Gran % (Auto) 0.5 Neut % (Auto) 78.7 H Lymph % (Auto) 12.7 L [place] % (Auto) 6.3 Eos % (Auto) 1.5 Baso % (Auto) 0.3 Lymph # (Auto) 1.32 [place] # (Auto) 0.7 H Eos # (Auto) 0.2 Baso # (Auto) 0.0 Abs Immat Gran (auto) 0.05 H Absolute Neuts (auto) 8.2 H Absolute Nucleated RBC 0.000 Nucleated RBC % 0.0 % Immature Plt Fraction 5.0 ESR 51 H Sodium 138 Potassium 4.1 Chloride 101 Carbon Dioxide 30 Anion Gap 7 BUN 20 Creatinine 0.91 Estim Creat Clear Calc 54 Estimated GFR > 60 Glucose 152 H POC Capillary Glucose 130 H Lactic Acid 1.1 Calcium 9.9 C-Reactive Protein 3.4 H Impressions Foot X-Ray 12/21/24 16:14 IMPRESSION: 1. Soft tissue swelling at the lateral ankle and hindfoot with indistinct cortex at the tip of the lateral malleolus and could not exclude osteomyelitis. Differential would include sequela from avulsion fracture either acute or chronic. Correlate for adjacent skin wound and consider left ankle radiographs to better profiled as location. 2. Hallux valgus with bunion and possible chronic erosion at the medial head of the first metatarsal with appearance and location most suggestive of gout. 2. 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 Foot CT 12/21/24 18:28 IMPRESSION: No acute osseous finding in the left foot. No CT evidence of osteomyelitis. Likely partial peroneus brevis tear. Lateral soft tissue swelling/induration. All imaging personally reviewed and interpreted. And unless stated otherwise agree with radiologic interpretation. Assessment and Plan Assessment and plan (1) Diabetic infection of left foot: Code(s): E11.628 - Type 2 diabetes mellitus with other skin complications; L08.9 - Local infection of the skin and subcutaneous tissue, unspecified Status: Acute (2) Type 2 diabetes mellitus: Qualifiers: Diabetes mellitus pediatric anesthesiologist insulin use: without pediatric anesthesiologist use Diabetes mellitus complication status: with neurologic complications Diabetes mellitus complication detail: with polyneuropathy Qualified Code(s): E11.42 - Type 2 diabetes mellitus with diabetic polyneuropathy Code(s): E11.9 - Type 2 diabetes mellitus without complications Status: Acute (3) Benign essential hypertension: Code(s): I10 - Essential (primary) hypertension Status: Acute Plan Patient has a left lateral foot wound due to puncture complicated by underlying history of diabetic peripheral neuropathy and type 2 diabetes mellitus. Patient been placed on an antibiotic therapy with cefepime Flagyl and vancomycin per antibiotic stewardship guidelines. ER provider obtained superficial swab of patient's wound and blood cultures. Will repeat CBC in a.m.. Will consult Wound Care. Hopefully the infection will improve with antibiotic therapy. However he may need some superficial debridement of the overlying puncture wound. The patient is euglycemic and has history of well-controlled diabetes. Will resume patient's home oral diabetic medications. Will check Accu-Cheks a.c. HS. Will provide low-dose sliding scale insulin as needed and hypoglycemia protocol as needed. The importance of checking issues before wearing them and actually wearing true outdoor she used to do yd work was discussed in detail with the patient. Will resume patient's home antihypertensives and anti-platelet medications as well as PPI therapy. Patient has been admitted as observation status. MEDICAL DECISION MAKING NARRATIVE -Spoke with the ED provider in detail regarding patient's evaluation, workup and management -Patient seen and examined at bedside -Collaborated with patient's nurse at the bedside in detail and addressed all concerns -Labs, electrolytes, radiology, investigations and test results reviewed -ED/Consult/Nursing/Ancilliary notes on the chart reviewed and appreciated -Spoke with patient at the bedside and all questions answered. Quality VTE Prophylaxis VTE prophylaxis: pharmacologic ordered (Lovenox 40 mg subQ daily.) Hospitalist MIPS Advance Care Plan I have confirmed that the patient's Advanced Care Plan is present, code status is documented, or surrogate decision maker is listed in patient medical record.: Yes Medication Reconciliation I have utilized all available resources to obtain, update and review the patients current medications (includes all prescriptions, OTC, herbals, cannabis, and nutritional supplements).: Yes
--- NOTE | 2024-12-21 22:32 | PC.NURSE ---
PATIENT ARRIVED ON 3 MEDSURG AT 2130
[2024-12-21 22:37] VITALS: BP 160/70
[2024-12-21] MEDS: PRAVASTATIN SODIUM 20 MG TABLET PO (23:15)
[2024-12-21] MEDS: CLOPIDOGREL BISULFATE 75 MG TABLET PO (23:15)
[2024-12-21] MEDS: PANTOPRAZOLE 40 MG TABLET PO (23:15)
--- NOTE | 2024-12-21 23:53 | WNDPHOTO ---
PHOTO ONLY - See Nursing Notes and/ or assessments for documentation.
[2024-12-22] MEDS: metroNIDAZOLE 500 MG/ISO 100ML 500 MG/100 ML BAG 100 MG IVPB ×3 (00:58→17:45)
[2024-12-22 04:14] VITALS: BP 149/66; PULSE 72; RESP 18; TEMP 36.4; O2SAT 93
[2024-12-22 06:06] LABS: Hematocrit 38.8 % (42.0-52.0); Hemoglobin 13.2 g/dL (14.0-18.0); Immature Granulocyte Percent A 0.5 % (0-0.5); Immature Platelet Fraction Pct 5.2 % (0.9-11.2); Lymphocytes Absolute Auto 1.08 K/mm3 (0.9-3.2); Mean Corpuscular HGB Conc 34.0 g/dl (32-36); Mean Corpuscular Hemoglobin 30.7 pg (26-34); Mean Corpuscular Volume 90.2 fl (80-100); Nucleated Red Blood Cells Absolute Auto 0.000 K/mm3 (0.0-0.012); Nucleated Red Blood Cells Perc 0.0 % (0.0-0.2); Platelet Count Result 136 k/mm3 (150-375); Red Blood Count 4.30 M/mm3 (4.6-6.20); White Blood Count 7.8 K/mm3 (4.5-10.0)
[2024-12-22 06:15] LABS: Estimated CRCL calculation 60 ml/min; Estimated Glomerular Filt Rate > 60
[2024-12-22] MEDS: ENOXAPARIN 40 MG/0.4 ML SYRINGE SUB-Q (08:38)
[2024-12-22] MEDS: PANTOPRAZOLE 40 MG TABLET PO ×2 (08:39→16:34)
[2024-12-22] MEDS: FINASTERIDE 5 MG TABLET PO (08:40)
[2024-12-22] MEDS: PSYLLIUM POWDER PACKET 1 PACKET PO (08:51)
--- NOTE | 2024-12-22 13:07 | P.PNIM_ITS ---
Progress Note: A&P Assessment and Plan (1) Diabetic infection of left foot: Code(s): E11.628 - Type 2 diabetes mellitus with other skin complications; L08.9 - Local infection of the skin and subcutaneous tissue, unspecified Status: Acute (2) Type 2 diabetes mellitus: Qualifiers: Diabetes mellitus tank terminal gauger insulin use: without tank terminal gauger use Diabetes mellitus complication status: with neurologic complications Diabetes mellitus complication detail: with polyneuropathy Qualified Code(s): E11.42 - Type 2 diabetes mellitus with diabetic polyneuropathy Code(s): E11.9 - Type 2 diabetes mellitus without complications Status: Acute (3) Benign essential hypertension: Code(s): I10 - Essential (primary) hypertension Status: Acute Plan left lateral foot wound due to puncture complicated by underlying history of diabetic peripheral neuropathy and type 2 diabetes mellitus. Continue Cefepime, Flagyl and Vanc Xray and CT of foot no evidence of osteo MRI foot ordered F/u with blood and wound culture Wound care following further plans per MRI foot DM2 SSi with accucheks, adjust with clinical course HTN continue home meds DVT prophylaxis on Lovenox Subjective Date/time seen: 12/22/24 13:07 Interval history: Comfortable at bedisde MRI left foot ordered continue wound care meanwhile Review of Systems Review of Systems: 12 systems were reviewed with pertinent positives and negatives per HPI. Except as documented in the HPI, all other systems were reviewed and are negative. He denies any nausea, vomiting, chest pain, shortness of breath. He does have BPH in chronic weak urinary stream unchanged from baseline. He has maturing cataracts. Exam Narrative: Weight 79.8 kg BMI 26 Const: Other: No acute distress, well-developed well-nourished, appears stated age HENMT: Other: Fair dentition, mucous membranes are moist, no oral pharyngeal erythema Eyes: Other: Pupils are equal and reactive, bilateral cataracts noted, no conjunctival pallor Neck: Other: No lymphadenopathy, no thyromegaly Resp: Other: Clear to auscultation bilaterally, no increased work of breathing Cardio: Other: Sinus bradycardia, 2+ bilateral radial and pedal pulses, no murmur GI: Other: Soft, nontender, nondistended, positive bowel sounds Skin: Other: No jaundice, no pallor, erythema and swelling of lateral foot please see extremity exam Neuro: Other: Alert orient x4, speech is clear, no facial asymmetry, no localizing neurologic deficits noted during the course of conversation Extrem: Other: No clubbing, cyanosis or edema, erythema and swelling to the lateral 5th metatarsal with erythema extending up towards the ankle and lateral malleolus, increased warmth on palpation, there is a central area of about the size of a quarter that is white in as the appearance of a vesicle with a small puncture in the center that is draining copious amounts of serous fluid Psych: Other: Appropriate mood and affect, pleasant and cooperative, judgment and insight intact Objective Data Vital Signs Vital Signs: Vital Signs - 24 hr 12/21/24 14:46 12/21/24 16:30 12/21/24 17:15 Temperature 98.4 F 98.0 F 98.0 F Pulse Rate 90 70 66 Respiratory Rate 16 18 18 Blood Pressure 161/68 H 148/56 H 153/76 H Pulse Oximetry 96 98 100 Oxygen Delivery Room Air 12/21/24 17:45 12/21/24 21:35 12/21/24 22:37 Temperature 98.0 F 97.2 F L Pulse Rate 65 59 L Respiratory Rate 18 16 Blood Pressure 154/67 H 176/70 H 160/70 H Pulse Oximetry 99 97 Oxygen Delivery 12/21/24 23:54 12/22/24 04:14 12/22/24 08:00 Temperature 97.6 F Pulse Rate 72 Respiratory Rate 18 Blood Pressure 149/66 H Pulse Oximetry 93 Oxygen Delivery Room Air Room Air Intake/Output Intake/Output: Intake & Output 12/19/24 12/20/24 12/21/24 12/22/24 23:59 23:59 23:59 23:59 Intake Total 150 1090 Balance 150 1090 Meds/Results Medications: Active Medications Generic Name Dose Route Start Last Admin Trade Name Freq PRN Reason Stop Dose Admin Acetaminophen 650 mg 12/21/24 20:34 Acetaminophen 325 Mg Tablet PO Q4H PRN Mild Pain (1-3) or Fever Amlodipine Besylate 10 mg 12/22/24 09:00 12/22/24 08:38 Amlodipine Besylate 5 Mg Tablet PO 10 mg DAILY HA Administration Calcium Carbonate 200 mg 12/21/24 22:58 Calcium Carbonate (Tums) 500 Mg (200 Mg Elemental) PO Q6H PRN Indigestion Clopidogrel Bisulfate 75 mg 12/21/24 23:05 12/21/24 23:15 Clopidogrel Bisulfate 75 Mg Tablet PO 75 mg HS HA Administration Dextrose 12.5 gm 12/21/24 20:34 Dextrose 50% 25 Gm/50 Ml Syringe IV PUSH PRN PRN Hypoglycemia Protocol Dextrose 12.5 gm 12/21/24 22:58 Dextrose 50% 25 Gm/50 Ml Syringe IV PUSH PRN PRN Hypoglycemia Protocol Enoxaparin Sodium 40 mg 12/22/24 09:00 12/22/24 08:38 Enoxaparin 40 Mg/0.4 Ml Syringe SUB-Q 40 mg DAILY HA Administration Finasteride 5 mg 12/22/24 09:00 12/22/24 08:40 Finasteride 5 Mg Tablet PO 5 mg DAILY HA Administration Glucagon 1 mg 12/21/24 20:34 Glucagon For Inj 1 Mg Vial IM PRN PRN Hypoglycemia Protocol Glucagon 1 mg 12/21/24 22:58 Glucagon For Inj 1 Mg Vial IM PRN PRN Hypoglycemia Protocol Glucose 15 gm 12/21/24 20:34 Glucose Oral Gel 15 Gm Of Glucse In 37.5 Gm Tube PO PRN PRN Hypoglycemia Protocol Glucose 15 gm 12/21/24 22:58 Glucose Oral Gel 15 Gm Of Glucse In 37.5 Gm Tube PO PRN PRN Hypoglycemia Protocol Hydrochlorothiazide 12.5 mg 12/22/24 09:00 12/22/24 08:38 Hydrochlorothiazide 12.5 Mg Capsule PO 12.5 mg QAM HA Administration Cefepime HCl 1 gm/ Sodium 50 mls @ 100 mls/hr 12/22/24 18:00 Chloride IVPB Q24H HA Metronidazole 500 mg in 100 mls @ 100 mls/hr 12/22/24 02:00 12/22/24 08:58 Flagyl 500 Mg/Iso Soln 100 Ml IVPB 100 mls/hr Q8H HA Administration Vancomycin HCl 1,500 mg in 500 mls @ 250 mls/hr 12/22/24 19:00 Vancomycin 1,500 Mg/Ns 500 Ml IVPB Q24H HA Dextrose 1,000 mls @ 100 mls/hr 12/21/24 20:34 Dextrose 5% 1,000 Ml IVPB PRN PRN Hypoglycemia Protocol Dextrose 1,000 mls @ 100 mls/hr 12/21/24 22:58 Dextrose 5% 1,000 Ml IVPB PRN PRN Hypoglycemia Protocol Insulin Aspart 2 - 5 units 12/22/24 08:00 12/22/24 12:51 Insulin Aspart (*Bkc) 100 Units/Ml SUB-Q Not Given TIDWM [facility] Protocol Lisinopril 40 mg 12/22/24 09:00 12/22/24 08:38 Lisinopril 20 Mg Tablet PO 40 mg DAILY HA Administration Metformin HCl 1,000 mg 12/22/24 09:00 12/22/24 08:51 Metformin Hcl 500 Mg Tablet PO 1,000 mg BID HA Administration Ondansetron HCl 4 mg 12/21/24 20:34 Ondansetron Inj 4 Mg/2 Ml Vial IV PUSH Q4H PRN Nausea Pantoprazole Sodium 40 mg 12/21/24 23:05 12/22/24 08:39 Pantoprazole 40 Mg Tablet PO 40 mg BID HA Administration Pravastatin Sodium 20 mg 12/21/24 23:05 12/21/24 23:15 Pravastatin Sodium 20 Mg Tablet PO 20 mg HS HA Administration Psyllium Hydrophilic Mucilloid 1 packet 12/22/24 09:00 12/22/24 08:51 Psyllium Powder Packet PO 1 packet DAILY HA Administration Sitagliptin Phosphate 50 mg 12/22/24 09:00 12/22/24 08:40 Sitagliptin Phosphate 50 Mg Tablet PO 50 mg BID HA Administration Radiology Results: ITS Impressions Foot X-Ray 12/21/24 16:14 IMPRESSION: 1. Soft tissue swelling at the lateral ankle and hindfoot with indistinct cortex at the tip of the lateral malleolus and could not exclude osteomyelitis. Differential would include sequela from avulsion fracture either acute or chronic. Correlate for adjacent skin wound and consider left ankle radiographs to better profiled as location. 2. Hallux valgus with bunion and possible chronic erosion at the medial head of the first metatarsal with appearance and location most suggestive of gout. 2. 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 Foot CT 12/21/24 18:28 IMPRESSION: No acute osseous finding in the left foot. No CT evidence of osteomyelitis. Likely partial peroneus brevis tear. Lateral soft tissue swelling/induration. Labs Labs: Laboratory Results - last 24 hr 12/21/24 12/21/24 12/22/24 16:39 21:37 05:28 WBC 10.4 H 7.8 RBC 4.44 L 4.30 L Hgb 13.5 L 13.2 L Hct 39.9 L 38.8 L MCV 89.9 90.2 MCH 30.4 30.7 MCHC 33.8 34.0 RDW 12.7 12.8 Plt Count 142 L 136 L MPV 11.0 H 11.0 H Immature Gran % (Auto) 0.5 0.5 Neut % (Auto) 78.7 H 74.1 H Lymph % (Auto) 12.7 L 13.8 L [place] % (Auto) 6.3 7.8 Eos % (Auto) 1.5 3.2 Baso % (Auto) 0.3 0.6 Lymph # (Auto) 1.32 1.08 [place] # (Auto) 0.7 H 0.6 Eos # (Auto) 0.2 0.3 Baso # (Auto) 0.0 0.1 Abs Immat Gran (auto) 0.05 H 0.04 H Absolute Neuts (auto) 8.2 H 5.8 Absolute Nucleated RBC 0.000 0.000 Nucleated RBC % 0.0 0.0 % Immature Plt Fraction 5.0 5.2 ESR 51 H Sodium 138 Potassium 4.1 Chloride 101 Carbon Dioxide 30 Anion Gap 7 BUN 20 Creatinine 0.91 0.82 Estim Creat Clear Calc 54 60 Estimated GFR > 60 > 60 Glucose 152 H POC Capillary Glucose 130 H Lactic Acid 1.1 Calcium 9.9 C-Reactive Protein 3.4 H 12/22/24 12/22/24 08:26 12:13 WBC RBC Hgb Hct MCV MCH MCHC RDW Plt Count MPV Immature Gran % (Auto) Neut % (Auto) Lymph % (Auto) [place] % (Auto) Eos % (Auto) Baso % (Auto) Lymph # (Auto) [place] # (Auto) Eos # (Auto) Baso # (Auto) Abs Immat Gran (auto) Absolute Neuts (auto) Absolute Nucleated RBC Nucleated RBC % % Immature Plt Fraction ESR Sodium Potassium Chloride Carbon Dioxide Anion Gap BUN Creatinine Estim Creat Clear Calc Estimated GFR Glucose POC Capillary Glucose 144 H 148 H Lactic Acid Calcium C-Reactive Protein Quality VTE Prophylaxis VTE prophylaxis: pharmacologic ordered (Lovenox 40 mg subQ daily.)
[2024-12-22 13:43] VITALS: BP 126/65; PULSE 64; RESP 17; TEMP 35.8; O2SAT 95
[2024-12-22] MEDS: CEFEPIME 1 GM in SODIUM CHLORIDE 0.9% IV 50 ML 100 ML IVPB (17:12)
[2024-12-22] MEDS: VANCOMYCIN 1,500 MG/NS 500 ML 1,500 MG/500 ML BAG 150 MG IVPB (18:55)
[2024-12-22] MEDS: CLOPIDOGREL BISULFATE 75 MG TABLET PO (21:22)
[2024-12-22] MEDS: PRAVASTATIN SODIUM 20 MG TABLET PO (21:22)
[2024-12-22 21:28] VITALS: BP 164/71; PULSE 69; RESP 14; TEMP 36.1; O2SAT 96
[2024-12-23] MEDS: metroNIDAZOLE 500 MG/ISO 100ML 500 MG/100 ML BAG 100 MG IVPB ×3 (01:02→17:40)
[2024-12-23 05:47] LABS: Hematocrit 38.2 % (42.0-52.0); Hemoglobin 12.8 g/dL (14.0-18.0); Immature Granulocyte Percent A 0.3 % (0-0.5); Immature Platelet Fraction Pct 4.5 % (0.9-11.2); Lymphocytes Absolute Auto 1.23 K/mm3 (0.9-3.2); Mean Corpuscular HGB Conc 33.5 g/dl (32-36); Mean Corpuscular Hemoglobin 29.9 pg (26-34); Mean Corpuscular Volume 89.3 fl (80-100); Nucleated Red Blood Cells Absolute Auto 0.000 K/mm3 (0.0-0.012); Nucleated Red Blood Cells Perc 0.0 % (0.0-0.2); Platelet Count Result 136 k/mm3 (150-375); Red Blood Count 4.28 M/mm3 (4.6-6.20); White Blood Count 6.0 K/mm3 (4.5-10.0)
[2024-12-23 05:57] VITALS: BP 152/60; PULSE 56; RESP 16; TEMP 36.3; O2SAT 98
[2024-12-23 06:03] LABS: Alanine Aminotransferase 12 U/L (6-50); Albumin Level 3.4 g/dL (3.5-5.1); Alkaline Phosphatase 72 U/L (38-126); Anion Gap 7 mmol/L (4-12); Aspartate Amino Transferase 19 U/L (17-59); Bilirubin,Total 0.5 mg/dL (0.2-1.3); Blood Urea Nitrogen 16 mg/dL (9-20); Calcium 9.2 mg/dL (8.4-10.2); Carbon Dioxide 29 mmol/L (22-30); Chloride 103 mmol/L (98-107); Estimated CRCL calculation 56 ml/min; Estimated Glomerular Filt Rate > 60; Glucose 131 mg/dL (65-110); Magnesium 1.6 mg/dL (1.6-2.3); Potassium 3.4 mmol/L (3.4-5.0); Sodium 139 mmol/L (137-145); Total Protein 6.7 g/dL (6.3-8.2)
[2024-12-23] MEDS: ENOXAPARIN 40 MG/0.4 ML SYRINGE SUB-Q (09:43)
[2024-12-23] MEDS: PSYLLIUM POWDER PACKET 1 PACKET PO (09:43)
[2024-12-23] MEDS: PANTOPRAZOLE 40 MG TABLET PO ×2 (09:44→17:39)
[2024-12-23] MEDS: FINASTERIDE 5 MG TABLET PO (09:44)
--- NOTE | 2024-12-23 13:43 | P.PNIM_ITS ---
Progress Note: A&P Assessment and Plan (1) Diabetic infection of left foot: Code(s): E11.628 - Type 2 diabetes mellitus with other skin complications; L08.9 - Local infection of the skin and subcutaneous tissue, unspecified Status: Acute (2) Type 2 diabetes mellitus: Qualifiers: Diabetes mellitus terminal press operator insulin use: without terminal press operator use Diabetes mellitus complication status: with neurologic complications Diabetes mellitus complication detail: with polyneuropathy Qualified Code(s): E11.42 - Type 2 diabetes mellitus with diabetic polyneuropathy Code(s): E11.9 - Type 2 diabetes mellitus without complications Status: Acute (3) Benign essential hypertension: Code(s): I10 - Essential (primary) hypertension Status: Acute Plan left lateral foot wound due to puncture complicated by underlying history of diabetic peripheral neuropathy and type 2 diabetes mellitus. Continue Cefepime, Flagyl and Vanc Xray and CT of foot no evidence of osteo MRI foot pending F/u with blood and wound culture Wound care following further plans per MRI foot DM2 SSi with accucheks, adjust with clinical course HTN continue home meds DVT prophylaxis on Lovenox Subjective Date/time seen: 12/23/24 13:43 Interval history: Comfortable at bedisde MRI left foot pending Review of Systems Review of Systems: 12 systems were reviewed with pertinent positives and negatives per HPI. Except as documented in the HPI, all other systems were reviewed and are negative. He denies any nausea, vomiting, chest pain, shortness of breath. He does have BPH in chronic weak urinary stream unchanged from baseline. He has maturing cataracts. Exam Narrative: Weight 79.8 kg BMI 26 Const: Other: No acute distress, well-developed well-nourished, appears stated age HENMT: Other: Fair dentition, mucous membranes are moist, no oral pharyngeal erythema Eyes: Other: Pupils are equal and reactive, bilateral cataracts noted, no conjunctival pallor Neck: Other: No lymphadenopathy, no thyromegaly Resp: Other: Clear to auscultation bilaterally, no increased work of breathing Cardio: Other: Sinus bradycardia, 2+ bilateral radial and pedal pulses, no murmur GI: Other: Soft, nontender, nondistended, positive bowel sounds Skin: Other: No jaundice, no pallor, erythema and swelling of lateral foot please see extremity exam Neuro: Other: Alert orient x4, speech is clear, no facial asymmetry, no localizing neurologic deficits noted during the course of conversation Extrem: Other: No clubbing, cyanosis or edema, erythema and swelling to the lateral 5th metatarsal with erythema extending up towards the ankle and lateral malleolus, increased warmth on palpation, there is a central area of about the size of a quarter that is white in as the appearance of a vesicle with a small puncture in the center that is draining copious amounts of serous fluid Psych: Other: Appropriate mood and affect, pleasant and cooperative, judgment and insight intact Objective Data Vital Signs Vital Signs: Vital Signs - 24 hr 12/22/24 20:00 12/22/24 21:28 12/23/24 05:57 Temperature 97.0 F L 97.3 F L Pulse Rate 69 56 L Respiratory Rate 14 16 Blood Pressure 164/71 H 152/60 H Pulse Oximetry 96 98 Oxygen Delivery Room Air 12/23/24 08:00 Temperature Pulse Rate Respiratory Rate Blood Pressure Pulse Oximetry Oxygen Delivery Room Air Intake/Output Intake/Output: Intake & Output 12/20/24 12/21/24 12/22/24 12/23/24 23:59 23:59 23:59 23:59 Intake Total 150 2370 640 Output Total 650 Balance 150 2370 -10 Meds/Results Medications: Active Medications Generic Name Dose Route Start Last Admin Trade Name Freq PRN Reason Stop Dose Admin Acetaminophen 650 mg 12/21/24 20:34 Acetaminophen 325 Mg Tablet PO Q4H PRN Mild Pain (1-3) or Fever Amlodipine Besylate 10 mg 12/22/24 09:00 12/23/24 09:44 Amlodipine Besylate 5 Mg Tablet PO 10 mg DAILY HA Administration Calcium Carbonate 200 mg 12/21/24 22:58 Calcium Carbonate (Tums) 500 Mg (200 Mg Elemental) PO Q6H PRN Indigestion Clopidogrel Bisulfate 75 mg 12/21/24 23:05 12/22/24 21:22 Clopidogrel Bisulfate 75 Mg Tablet PO 75 mg HS HA Administration Dextrose 12.5 gm 12/21/24 20:34 Dextrose 50% 25 Gm/50 Ml Syringe IV PUSH PRN PRN Hypoglycemia Protocol Dextrose 12.5 gm 12/21/24 22:58 Dextrose 50% 25 Gm/50 Ml Syringe IV PUSH PRN PRN Hypoglycemia Protocol Enoxaparin Sodium 40 mg 12/22/24 09:00 12/23/24 09:43 Enoxaparin 40 Mg/0.4 Ml Syringe SUB-Q 40 mg DAILY HA Administration Finasteride 5 mg 12/22/24 09:00 12/23/24 09:44 Finasteride 5 Mg Tablet PO 5 mg DAILY HA Administration Glucagon 1 mg 12/21/24 20:34 Glucagon For Inj 1 Mg Vial IM PRN PRN Hypoglycemia Protocol Glucagon 1 mg 12/21/24 22:58 Glucagon For Inj 1 Mg Vial IM PRN PRN Hypoglycemia Protocol Glucose 15 gm 12/21/24 20:34 Glucose Oral Gel 15 Gm Of Glucse In 37.5 Gm Tube PO PRN PRN Hypoglycemia Protocol Glucose 15 gm 12/21/24 22:58 Glucose Oral Gel 15 Gm Of Glucse In 37.5 Gm Tube PO PRN PRN Hypoglycemia Protocol Hydrochlorothiazide 12.5 mg 12/22/24 09:00 12/23/24 09:43 Hydrochlorothiazide 12.5 Mg Capsule PO 12.5 mg QAM HA Administration Metronidazole 500 mg in 100 mls @ 100 mls/hr 12/22/24 02:00 12/23/24 10:45 Flagyl 500 Mg/Iso Soln 100 Ml IVPB Infused Q8H HA Infusion Vancomycin HCl 1,500 mg in 500 mls @ 250 mls/hr 12/22/24 19:00 12/22/24 18:55 Vancomycin 1,500 Mg/Ns 500 Ml IVPB 150 mls/hr Q24H HA Administration Dextrose 1,000 mls @ 100 mls/hr 12/21/24 20:34 Dextrose 5% 1,000 Ml IVPB PRN PRN Hypoglycemia Protocol Dextrose 1,000 mls @ 100 mls/hr 12/21/24 22:58 Dextrose 5% 1,000 Ml IVPB PRN PRN Hypoglycemia Protocol Cefepime HCl 1 gm in 50 mls @ 100 mls/hr 12/23/24 12:40 Maxipime 1 Gm/Ns 50 Ml IVPB Q12HR HA Insulin Aspart 2 - 5 units 12/22/24 08:00 12/23/24 12:03 Insulin Aspart (*Bkc) 100 Units/Ml SUB-Q Not Given TIDWM [facility] Protocol Lisinopril 40 mg 12/22/24 09:00 12/23/24 09:44 Lisinopril 20 Mg Tablet PO 40 mg DAILY HA Administration Metformin HCl 1,000 mg 12/22/24 09:00 12/23/24 09:44 Metformin Hcl 500 Mg Tablet PO 1,000 mg BID HA Administration Ondansetron HCl 4 mg 12/21/24 20:34 Ondansetron Inj 4 Mg/2 Ml Vial IV PUSH Q4H PRN Nausea Pantoprazole Sodium 40 mg 12/21/24 23:05 12/23/24 09:44 Pantoprazole 40 Mg Tablet PO 40 mg BID HA Administration Pravastatin Sodium 20 mg 12/21/24 23:05 12/22/24 21:22 Pravastatin Sodium 20 Mg Tablet PO 20 mg HS HA Administration Psyllium Hydrophilic Mucilloid 1 packet 12/22/24 09:00 12/23/24 09:43 Psyllium Powder Packet PO 1 packet DAILY HA Administration Sitagliptin Phosphate 50 mg 12/22/24 09:00 12/23/24 09:44 Sitagliptin Phosphate 50 Mg Tablet PO 50 mg BID HA Administration Radiology Results: ITS Impressions Foot X-Ray 12/21/24 16:14 IMPRESSION: 1. Soft tissue swelling at the lateral ankle and hindfoot with indistinct cortex at the tip of the lateral malleolus and could not exclude osteomyelitis. Differential would include sequela from avulsion fracture either acute or chronic. Correlate for adjacent skin wound and consider left ankle radiographs to better profiled as location. 2. Hallux valgus with bunion and possible chronic erosion at the medial head of the first metatarsal with appearance and location most suggestive of gout. 2. 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 Foot CT 12/21/24 18:28 IMPRESSION: No acute osseous finding in the left foot. No CT evidence of osteomyelitis. Likely partial peroneus brevis tear. Lateral soft tissue swelling/induration. Labs Labs: Laboratory Results - last 24 hr 12/22/24 12/22/24 12/22/24 16:38 18:03 19:44 WBC RBC Hgb Hct MCV MCH MCHC RDW Plt Count MPV Immature Gran % (Auto) Neut % (Auto) Lymph % (Auto) [place] % (Auto) Eos % (Auto) Baso % (Auto) Lymph # (Auto) [place] # (Auto) Eos # (Auto) Baso # (Auto) Abs Immat Gran (auto) Absolute Neuts (auto) Absolute Nucleated RBC Nucleated RBC % % Immature Plt Fraction Sodium Potassium Chloride Carbon Dioxide Anion Gap BUN Creatinine Estim Creat Clear Calc Estimated GFR Glucose POC Capillary Glucose 148 H 170 H Calcium Magnesium Total Bilirubin AST ALT Alkaline Phosphatase Total Protein Albumin Vancomycin Trough 7.2 L 12/23/24 12/23/24 12/23/24 05:19 05:20 08:18 WBC 6.0 RBC 4.28 L Hgb 12.8 L Hct 38.2 L MCV 89.3 MCH 29.9 MCHC 33.5 RDW 12.6 Plt Count 136 L MPV 10.8 H Immature Gran % (Auto) 0.3 Neut % (Auto) 65.3 Lymph % (Auto) 20.6 [place] % (Auto) 8.5 Eos % (Auto) 4.8 H Baso % (Auto) 0.5 Lymph # (Auto) 1.23 [place] # (Auto) 0.5 Eos # (Auto) 0.3 Baso # (Auto) 0.0 Abs Immat Gran (auto) 0.02 Absolute Neuts (auto) 3.9 Absolute Nucleated RBC 0.000 Nucleated RBC % 0.0 % Immature Plt Fraction 4.5 Sodium 139 Potassium 3.4 Chloride 103 Carbon Dioxide 29 Anion Gap 7 BUN 16 Creatinine 0.87 Estim Creat Clear Calc 56 Estimated GFR > 60 Glucose 131 H POC Capillary Glucose 128 H Calcium 9.2 Magnesium 1.6 Total Bilirubin 0.5 AST 19 ALT 12 Alkaline Phosphatase 72 Total Protein 6.7 Albumin 3.4 L Vancomycin Trough 12/23/24 11:38 WBC RBC Hgb Hct MCV MCH MCHC RDW Plt Count MPV Immature Gran % (Auto) Neut % (Auto) Lymph % (Auto) [place] % (Auto) Eos % (Auto) Baso % (Auto) Lymph # (Auto) [place] # (Auto) Eos # (Auto) Baso # (Auto) Abs Immat Gran (auto) Absolute Neuts (auto) Absolute Nucleated RBC Nucleated RBC % % Immature Plt Fraction Sodium Potassium Chloride Carbon Dioxide Anion Gap BUN Creatinine Estim Creat Clear Calc Estimated GFR Glucose POC Capillary Glucose 175 H Calcium Magnesium Total Bilirubin AST ALT Alkaline Phosphatase Total Protein Albumin Vancomycin Trough Quality VTE Prophylaxis VTE prophylaxis: pharmacologic ordered (Lovenox 40 mg subQ daily.)
[2024-12-23 13:46] VITALS: BP 179/81; PULSE 68; RESP 18; TEMP 36.2; O2SAT 98
[2024-12-23] MEDS: CEFEPIME 1 GM in SODIUM CHLORIDE 0.9% IV 50 ML IVPB (14:56)
[2024-12-23 21:04] VITALS: BP 166/70; PULSE 77; RESP 16; TEMP 36.6; O2SAT 97
[2024-12-23] MEDS: VANCOMYCIN 1,500 MG/NS 500 ML 1,500 MG/500 ML BAG 250 MG IVPB (21:06)
[2024-12-23] MEDS: PRAVASTATIN SODIUM 20 MG TABLET PO (21:09)
[2024-12-23] MEDS: CLOPIDOGREL BISULFATE 75 MG TABLET PO (21:09)
[2024-12-24] MEDS: metroNIDAZOLE 500 MG/ISO 100ML 500 MG/100 ML BAG 100 MG IVPB ×2 (02:28→11:17)
[2024-12-24] MEDS: CEFEPIME 1 GM in SODIUM CHLORIDE 0.9% IV 50 ML IVPB (04:23)
[2024-12-24 04:32] VITALS: BP 151/62; PULSE 64; RESP 20; TEMP 36.4; O2SAT 95
[2024-12-24 07:18] LABS: Estimated CRCL calculation 58 ml/min; Estimated Glomerular Filt Rate > 60
[2024-12-24] MEDS: PANTOPRAZOLE 40 MG TABLET PO (08:07)
[2024-12-24] MEDS: VANCOMYCIN 1,500 MG/NS 500 ML 1,500 MG/500 ML BAG 250 MG IVPB (08:07)
[2024-12-24] MEDS: FINASTERIDE 5 MG TABLET PO (08:07)
[2024-12-24] MEDS: PSYLLIUM POWDER PACKET 1 PACKET PO (08:21)
[2024-12-24] MEDS: ENOXAPARIN 40 MG/0.4 ML SYRINGE SUB-Q (08:22)
--- NOTE | 2024-12-24 09:34 | P.CONGS_ITS ---
Assessment and Plan Assessment and plan (1) Diabetic infection of left foot: Code(s): E11.628 - Type 2 diabetes mellitus with other skin complications; L08.9 - Local infection of the skin and subcutaneous tissue, unspecified Status: Acute Assessment and Plan: Patient was walking in his yard this past weekend when he stepped on something sharp his left foot and sustained a small puncture wound. He noticed some edema and erythema and was instructed by his PCP to present to the ED. Imaging did not reveal any acute abnormalities. No concern for osteomyelitis. Upon physical exam, injury wound does not appear infected or necrosed. Per patient, it is significantly better than when he 1st presented to the ED. He is independently ambulating on foot without any difficulty. Afebrile with normal white blood cell count. * No surgical intervention necessary at this time. Wound is healing well. If problems arise, consider podiatry referral. We will sign off at this time. * Continue IV antibiotics as per protocol or consult ID pharmacist for recommendations. 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 use: without slice cutting machine operator helper use Diabetes mellitus complication status: with neurologic complications Diabetes mellitus complication detail: with polyneuropathy Qualified Code(s): E11.42 - Type 2 diabetes mellitus with diabetic polyneuropathy Code(s): E11.9 - Type 2 diabetes mellitus without complications Status: Acute History of Present Illness Consult details Consult date: 12/24/24 Reason for consult: other (Left foot ulcer) Requesting physician: William Woodard MD Narrative: Patient is a 84-year-old male with history CKD, arterial sclerotic heart disease, GERD, diabetes mellitus and diabetic peripheral neuropathy we have been asked to see in surgical consultation for a left foot ulcer. He Patient presented to the ED on Thursday 12/21. He states that on the Saturday before he was walking outside in thin-soled house slippers when he felt something sharp in his left foot. When he examined his foot he noticed a small puncture wound and found a little piece of clear debris in his house slipper. He noticed that his lateral side of his left foot became swollen. The next day the left foot continued to become increasingly edematous and erythematous. He noted that it became difficult to ambulate on the foot. He spoke with his PCP, who recommended he present to the ER for evaluation. Foot x-ray in the ED demonstrated soft tissue swelling at the lateral left ankle and hindfoot with indistinct cortex at the tip of the lateral malleolus. A CT was then obtained and did not demonstrate any evidence of osteomyelitis. WBC count was 10.4 in the ED, now down to 6.0. Afebrile. Patient has been on IV antibiotics including Flagyl, vancomycin, and cefepime. He notes that the swelling and pain has decreased significantly since admission to the hospital. He has been independently ambulating around his room without difficulty. [facility] Past Medical History Medical History (Updated 12/21/24 @ 22:50 by Lynsey Lovell DO) GERD (gastroesophageal reflux disease) Allergic rhinitis Chronic kidney disease (CKD) stage G2/A2, mildly decreased glomerular filtration rate (GFR) between 60-89 mL/min/1.73 square meter and albuminuria creatinine ratio between 30-299 mg/g ASHD (arteriosclerotic heart disease) Benign essential hypertension Cerebrovascular accident (CVA) Chronic GERD Elevated prostate specific antigen [PSA] Nocturnal leg cramps Nummular eczema Other and unspecified hyperlipidemia Surgical History Surgical History (Updated 12/21/24 @ 22:43 by Lynsey Lovell DO) History of arthroscopy of left knee (~2015) History of tonsillectomy and adenoidectomy (~1946) Family History Family History Father Family history of lung cancer Social History Social History (Updated 12/21/24 @ 22:45 by Lynsey Lovell DO) Social History: Patient lives with his they been since 1964. They have 2 daughters and a son. Two of her children live in [place]. He smoked 1 pack per day but quit in his early 20s. He was in the [employer] for about 6 years and worked in banking. He only briefly drink alcohol when he was young he only will rarely drink a small amount since then. He is active does his own [employer] work and is independent in activities of daily living. Code status: Full code Surrogate decision maker: Smoking packs per day: 1 Smoking cigarettes per day: 20.0 Years smoked: 4 Smoking pack-years: 4.00 Smoking status: Former smoker Second hand tobacco smoke exposure: No Smoking end date: 06/17/1966 Alcohol intake: current Drinks per week: 1 Alcohol use details: Rarely Substance use: never Substance use type: does not use Do You Feel Safe in your Home?: Yes Lack of Transportation: No Lack of Food: Never True Current Housing: I Have Housing Concerned About Future Housing: No Difficulty Paying Gas/Electric Bills: No Difficulty Paying for Meds: No Currently Unemployed: No Education: Bachelor's Degree Difficulty w/ Childcare or Family Care: No Living arrangements: with family Occupation/Education: retired Gender identity (if verbalized by the patient): Male Sexual Orientation (if Verbalized by the Patient): Straight or Heterosexual Spiritual care concerns: No Meds Home Medications and Allergies Home Medications ?Medication ?Instructions ?Recorded ?Confirmed ?Type calcium carbonate (Calcium 500) 500 mg PO BID PRN dyspepsia 08/05/19 12/21/24 History psyllium husk 3.4 gram/5.4 gram 1 tbsp PO DAILY 08/05/19 12/21/24 History oral powder (Metamucil) lancets 32 gauge #100 ea 08/24/19 12/21/24 Rx blood sugar diagnostic #100 ea 03/18/23 12/21/24 Rx sitagliptin phosphate 50 1 tablet PO BID #210 tabs 06/29/24 12/21/24 Rx mg-metformin 1,000 mg tablet (Janumet) lisinopril 40 mg tablet See Rx Instructions .Route 09/11/24 12/21/24 Rx .COMPLEX #100 tabs omeprazole 40 mg capsule,delayed 40 mg PO DAILY #100 caps 10/01/24 12/21/24 Rx release hydrochlorothiazide 12.5 mg tablet See Rx Instructions .Route 11/24/24 12/21/24 Rx .COMPLEX #90 tabs amlodipine 10 mg tablet See Rx Instructions .Route 12/10/24 12/21/24 Rx .COMPLEX #100 tabs clopidogrel 75 mg tablet 75 mg PO HS 12/21/24 12/21/24 History finasteride 5 mg tablet 5 mg PO DAILY 12/21/24 12/21/24 History pravastatin 20 mg tablet 20 mg PO HS 12/21/24 12/21/24 History Allergies Allergy/AdvReac Type Severity Reaction Status Date / Time No Known Allergies Allergy Verified 12/21/24 21:42 Vital Signs Vital Signs - 24 hr 12/23/24 13:46 12/23/24 21:04 12/24/24 04:32 Temperature 97.1 F L 97.8 F 97.5 F L Pulse Rate 68 77 64 Respiratory Rate 18 16 20 Blood Pressure 179/81 H 166/70 H 151/62 H Pulse Oximetry 98 97 95 Oxygen Delivery 12/24/24 08:00 Temperature Pulse Rate Respiratory Rate Blood Pressure Pulse Oximetry Oxygen Delivery Room Air Exam 2 Const: General: comfortable and no acute distress Eyes: General: appearance normal, both eyes and all related structures Neck: Neck: supple Resp: Effort & Inspection: normal respiratory effort Cardio: Rate: regular rate Skin: General skin exam: normal color and no rashes or lesions noted Neuro: Speech: normal speech Sensory Exam: normal sensation Extrem: Ankle/foot/toe images: 1. 2. Other: Area of ulceration distal to left lateral malleolus. Puncture wound with overlying healing callus and no visible foreign body. Erythema and mild edema to roughly 1/2 of the lateral dorsum of the foot. Psych: Mental Status: mental status grossly normal Results Labs 12/23/24 05:19 12/24/24 06:36 Labs: Abnormal lab results 12/23/24 12/23/24 12/23/24 Range/Units 11:38 16:47 18:07 POC Capillary Glucose 175 H 126 H (65-105) mg/dl Vancomycin Trough 8.1 L (10.0-20.0) ug/mL 12/23/24 12/24/24 Range/Units 21:06 07:29 POC Capillary Glucose 170 H 122 H (65-105) mg/dl Vancomycin Trough (10.0-20.0) ug/mL Diabetes panel 12/24/24 Range/Units 06:36 Creatinine 0.84 (0.7-1.3) mg/dL Pituitary panel 12/24/24 Range/Units 06:36 Creatinine 0.84 (0.7-1.3) mg/dL Adrenal panel 12/24/24 Range/Units 06:36 Creatinine 0.84 (0.7-1.3) mg/dL All other labs normal.
--- NOTE | 2024-12-24 12:52 | P.DS_ITS ---
DS: Admitting Diagnosis Discharge Date 12/24/24 Admitting Diagnosis Left foot infection DS: Discharge Diagnosis Discharge Diagnosis (1) Diabetic infection of left foot: Code(s): E11.628 - Type 2 diabetes mellitus with other skin complications; L08.9 - Local infection of the skin and subcutaneous tissue, unspecified Status: Acute DS: Summary Hospital Course Hospital Course: Pleasant, loquacious 84-year-old male with a past medical history of essential hypertension, type 2 diabetes mellitus, diabetic peripheral neuropathy, hyperlipidemia and GERD who presented to the ER from home due to a left foot infection. He reports that 4 days ago he was walking in the [place] in his house slippers and felt a sharp pain. When he walked back into the house he found a little piece of clear debris poking through his house slipper. The next day he noticed that the lateral left foot was swollen and becoming erythematous. That evening he did have some chills and thought that he may have had a fever but did not check a temperature. Then yesterday his had been poking on the area and an area started draining some clear fluid. The erythema and swelling had worsened and he was having throbbing pain that was constant no matter what position he put his foot in. Pain was worse with ambulation. He called his primary care provider's office today who recommended he come into the ER for evaluation. In the ER x-ray did not demonstrate any foreign body and contrasted CT of foot did not demonstrate any evidence of abscess. Incidental finding of partial prone use brevis tear noted with lateral soft tissue swelling and induration consistent with cellulitis. Patient was afebrile on arrival to the ER. He had a mildly elevated white count at 10.4 and a mildly elevated CRP and ESR. He is euglycemic and reports that his hemoglobin A1c is always ?good?. patient was managed for left foot ulcer and cellulitis, MRI ruled out osteomyelitis, Gen surgery was consulted for possible debreidment and noted that patient does not need debridement. Patient was disharged on Augmentin and Doxycycline x 14 days. F/u with PCP in 3-5 days Time Spent with Patient Time attestation: Total time spent providing and/or coordinating discharge services: DS: Data Data Completed and Pending Labs on day of discharge: Labs from last 24 hours 12/24/24 12/24/24 12/24/24 11:24 07:29 06:36 Creatinine 0.84 Estim Creat Clear Calc 58 Estimated GFR > 60 POC Capillary Glucose 153 H 122 H Vancomycin Trough 12/23/24 12/23/24 12/23/24 21:06 18:07 16:47 Creatinine Estim Creat Clear Calc Estimated GFR POC Capillary Glucose 170 H 126 H Vancomycin Trough 8.1 L Preliminary micro results at discharge 12/21/24 14:53 Anaerobic Culture - Preliminary Foot Left Harris briana 12/21/24 16:37 Blood Culture - Preliminary Blood 12/21/24 16:39 Blood Culture - Preliminary Blood Discharge Plan Discharge Attending physician on discharge: William Woodard Consulting providers: Justin Kelly Discharging Clinician: William Woodard Anticipated Discharge Date/Time: 12/24/24 12:44 Patient Disposition: Home Activity: as tolerated Diet: as tolerated and diabetic Patient Instructions: Antibiotic Form Patient Language: Paraguayan Stand Alone Forms: General Discharge Information Follow-up/Referrals: Blanca Tatum APRN [Primary Care Provider] - (F/u with PCP in 3-5 days ) Discharge Medications: New doxycycline hyclate 100 mg tablet 100 mg PO BID 14 Days Qty: 28 0RF amoxicillin-pot clavulanate 875-125 mg tablet 1 tablet PO Q12H 14 Days Qty: 28 0RF Continued (DME) lancets 32 gauge misc See Rx Instructions .ROUTE .MEDSUPPLY Qty: 100 0RF Rx Instructions: Use one lancet to test blood sugar once daily calcium carbonate [Calcium 500] 500 mg calcium (1,250 mg) tablet 500 mg PO BID PRN (Reason: dyspepsia) Metamucil 3.4 gram/5.4 gram powder 1 tbsp PO DAILY Rx Instructions: mix into at least 8 oz of water or juice before administering finasteride 5 mg tablet 5 mg PO DAILY clopidogrel 75 mg tablet 75 mg PO HS pravastatin 20 mg tablet 20 mg PO HS (DME) blood sugar diagnostic Strip See Rx Instructions .ROUTE .MEDSUPPLY Qty: 100 1RF Rx Instructions: Use to test blood sugar once daily Janumet 50-1,000 mg tablet 1 tablet PO BID Qty: 210 1RF lisinopril 40 mg tablet See Rx Instructions .ROUTE .COMPLEX Qty: 100 0RF Dose Instruction: TAKE 1 TABLET BY MOUTH EVERY MORNING Rx Instructions: TAKE 1 TABLET BY MOUTH EVERY MORNING omeprazole 40 mg capsule,delayed release(DR/EC) 40 mg PO DAILY Qty: 100 1RF hydrochlorothiazide 12.5 mg tablet See Rx Instructions .ROUTE .COMPLEX Qty: 90 0RF Dose Instruction: TAKE 1 TABLET BY MOUTH DAILY Rx Instructions: TAKE 1 TABLET BY MOUTH DAILY amlodipine 10 mg tablet See Rx Instructions .ROUTE .COMPLEX Qty: 100 0RF Dose Instruction: TAKE 1 TABLET BY MOUTH DAILY Rx Instructions: TAKE 1 TABLET BY MOUTH DAILY Date of admission: 12/22/24 10:00 Primary Care Provider: Blanca Tatum Admitting Provider: Lynsey Lovell Attending physician on admission: Lynsey Lovell Condition: Stable
== END 2024-12-24 13:40 | disposition home or self-care (01) | DRG 638 ==
LOC: ANHED 20:38 → ANH3MEDSUR 22:03
PROVIDERS: Physician Assistant; Admitting Provider Internal Medicine; Emergency Provider Physician Assistant; PCP Nurse Practitioner Family; Visit Provider Internal Medicine
DX: E11.628 Type 2 diabetes mellitus with other skin complications (principal); L03.116 Cellulitis of left lower limb; S91.332A Puncture wound without foreign body, left foot, initial encounter; L08.9 Local infection of the skin and subcutaneous tissue, unspecified; E11.22 Type 2 diabetes mellitus with diabetic chronic kidney disease; E11.42 Type 2 diabetes mellitus with diabetic polyneuropathy; E78.5 Hyperlipidemia, unspecified; I12.9 Hypertensive chronic kidney disease with stage 1 through stage 4 chronic kidney disease, or unspecified chronic kidney disease; K21.9 Gastro-esophageal reflux disease without esophagitis; N18.2 Chronic kidney disease, stage 2 (mild); Z79.84 Long term (current) use of oral hypoglycemic drugs; Z86.73 Personal history of transient ischemic attack (TIA), and cerebral infarction without residual deficits; Z87.891 Personal history of nicotine dependence; Z79.02 Long term (current) use of antithrombotics/antiplatelets
CPT/HCPCS: 36415; 73630; 73701; 73720; 80048; 80053; 80202; 82565; 82948; 83605; 83735; 85025; 85055; 85652; 86140; 87040; 87070; 87075; 87181; 87205; 96365; 96367; 96372; 96375; 99212; 99285; A9270; A9577; G0378; G0463; J0692; J1650; J1836; J3373; Q9967